=== PATIENT | female | born 1995 | race Caucasian/White ===

== ENCOUNTER 2024-04-17 11:36 | Emergency (ER) | payer BC, SELFPAY ==
[2024-04-17 11:45] VITALS: BP 130/79; PULSE 112; RESP 18; TEMP 36.9; O2SAT 97; BMI 52.7
[2024-04-17 12:36] LABS: Add Manual Diff / Slide Review NO; Basophils Absolute Auto 100 /uL (0-100); Basophils Percent Auto 0.3 % (0-2); Eosinophils Absolute Auto 200 /uL (0-450); Eosinophils Percent Auto 0.8 % (2-4); Hematocrit 43.9 % (36-46); Lymphocytes Absolute Auto 2200 /uL (1100-4500); Lymphocytes Percent Auto 8.3 % (25-40); Mean Corpuscular HGB Conc 34.2 % (30-36); Mean Corpuscular Hemoglobin 29.3 PG (26-34); Mean Corpuscular Volume 85.8 fL (80-100); Monocytes Absolute Auto 1400 /uL (0-900); Monocytes Percent Auto 5.4 % (3-14); Neutrophils Absolute Auto 22500 /uL (1500-7000); Neutrophils Percent Auto 85.2 % (50-75); Platelet Count 305 X10^3/uL (150-400); Red Blood Cell Count 5.12 X10^6/uL (4.0-5.2); Red Cell Distribution Width 13.1 % (11.6-14.8); White Blood Cell Count 26.4 X10^3/uL (4.5-11.0)
[2024-04-17] MEDS: SODIUM CHLORIDE 0.9% 1,000 ML 1000 ML IV (13:04)
[2024-04-17 13:05] LABS: Strep Grp A by PCR Rapid Positive (Negative)
[2024-04-17 13:20] LABS: Alanine Aminotransferase 21 IU/L (<35); Albumin 4.1 g/dL (3.5-5.0); Albumin Globulin Ratio 1.1 (1.0-2.8); Alkaline Phosphatase 94 U/L (38-126); Aspartate Aminotransferase 15 IU/L (14-36); Bilirubin Total 1.3 mg/dL (0.2-1.3); Blood Urea Nitrogen 7 mg/dL (7-17); Calcium 8.6 mg/dL (8.4-10.2); Carbon Dioxide 27 mmol/L (22-32); Chloride 102 mmol/L (98-107); Estimated Glomerular Filt Rate > 60 mL/min (>60); Globulin 3.7 g/dL (1.7-4.1); Glucose 281 mg/dL (70-100); HEMOLYSIS < 15 (0-50); Potassium 3.8 mmol/L (3.4-5.1); Sodium 135 mmol/L (137-145); Total Protein 7.8 g/dL (6.3-8.2)
--- NOTE | 2024-04-17 13:21 | ED_ITS ---
HPI - Weakness <Jack SimmonsJARAD truong - Last Filed: 04/17/24 15:29> General Chief complaint: Weakness Stated complaint: low blood pressure Source: patient Mode of arrival: Wheelchair History of Present Illness HPI Narrative: 28-year-old female, with history of type 2 diabetes, presents to emergency department with worsening sore throat and fatigue over last 2 days. Patient reports that she has been unable to eat or drink anything for the last couple of days due to the pain in her throat. Patient reports that she felt so poorly and lightheaded that she almost collapsed before her partner was able to help her to the ground and prevent her from hitting her head. Partner witnessed the entire episode and denies any head trauma or seizure activity. Patient was seen at the [facility] walk-in clinic last week and showed that she had a elevated blood sugar, and was given insulin at that time. Patient reports that the insulin only dropped her blood sugar 3 points. Patient is on metformin, but has not taken it in the last 4 months, because she has forgotten to take it. Patient does have a family doctor and has plenty of metformin at home. Related Data Previous Rx's Medication Instructions Recorded penicillin V potassium 500 mg 500 mg PO BID Strep pharyngitis 10 04/17/24 tablet days #20 tabs Allergies Allergy/AdvReac Type Severity Reaction Status Date / Time Sulfa (Sulfonamide Allergy Verified 04/17/24 11:45 Antibiotics) tramadol Allergy Verified 04/17/24 11:45 Review of Systems <Jack CasasJARAD rtuong - Last Filed: 04/17/24 15:29> Review of Systems Narrative: Narrative: See HPI. GENERAL: Denies chills, fever, sweats. Endorses fatigue. HEENT: Denies sinus pain, ear pain, , dizziness. Endorses sore throat and difficulty swallowing. RESPIRATORY: Denies dyspnea, cough, wheezing, sputum. CARDIOVASCULAR: Denies chest pain, palpitations, edema. GASTROINTESTINAL: Denies nausea, vomiting, abdominal pain, diarrhea, constipation. : Denies dysuria, frequency, incontinence, hematuria, urinary retention, flank pain. MSK: Denies weakness, joint pain, or bony pain. SKIN: Denies rash, skin lesions, or pruritis. NEUROLOGIC: Denies weakness, dizziness, headache, numbness, confusion. PSYCHIATRIC: No concerning psychosocial issues. Patient History <JARAD Cartagena - Last Filed: 04/17/24 15:29> Social History Smoking Status: Never smoker Smoking Status: Never smoker alcohol intake frequency: other Substance Use Type: marijuana Exam <JARAD Cartagena - Last Filed: 04/17/24 15:29> Narrative Exam Narrative: Exam Narrative: GENERAL: This is a well-nourished, well-developed patient, in no acute distress. HEAD: Atraumatic. Normocephalic. EYES: Pupils equal round and reactive. Extraocular motions intact. No scleral icterus, injection or drainage. ENT: Nose without bleeding, purulent drainage. Throat with erythema, tonsillar hypertrophy or exudate. Uvula swollen but midline. Airway patent. TMs and canals clear. No sinus tenderness. NECK: Trachea midline. No JVD. Tender right cervical lymph nodes. CARDIOVASCULAR: Regular rate and rhythm without murmurs, peripheral pulses intact, cap refill <2 sec. RESPIRATORY: Breath sounds equal and clear bilaterally. No wheezes, rales, or rhonchi. No cough. No increased respiratory effort. No accessory muscle use. GASTROINTESTINAL: Abdomen soft, non-tender, nondistended without guarding or rebound. No suprapubic pain. MSK: Moves all extremities. Normal range of motion, no clubbing or edema. Neurovascularly intact. NEURO: A&O x 3. SKIN: Warm, dry, no rashes or lesions noted. Initial Vital Signs Initial Vital Signs: Vital Signs Temperature 98.4 F 04/17/24 11:45 Pulse Rate 112 H 04/17/24 11:45 Respiratory Rate 18 04/17/24 11:45 Blood Pressure 130/79 04/17/24 11:45 Pulse Oximetry 97 04/17/24 11:45 Oxygen Delivery Method Room Air 04/17/24 11:45 Reviewed <Vamsi uQach MD - Last Filed: 04/18/24 18:45> Initial Vital Signs Initial Vital Signs: Vital Signs Temperature 98.4 F 04/17/24 11:45 Pulse Rate 112 H 04/17/24 11:45 Respiratory Rate 18 04/17/24 11:45 Blood Pressure 130/79 04/17/24 11:45 Pulse Oximetry 97 04/17/24 11:45 Oxygen Delivery Method Room Air 04/17/24 11:45 Course <JARAD Cartagena - Last Filed: 04/17/24 15:29> Orders Ordered: Discontinued Medications Sodium Chloride (Normal Saline 0.9%) 1,000 mls @ 1,000 mls/hr IV BOLUS PRN PRN Reason: Fluid replacement Last Infusion: 04/17/24 14:35 Dose: Infused Documented By: Admin: 04/17/24 13:04 Dose: 1,000 mls/hr Documented By: YANIRA Penicillin V Potassium (Penicillin Vk 250 Mg Tablet) 500 mg PO NOW ONE Stop: 04/17/24 13:22 Last Admin: 04/17/24 13:31 Dose: 500 mg Documented By: YANIRA Vital Signs Vital signs: Vital Signs - 8 hr 04/17/24 11:45 04/17/24 13:34 04/17/24 14:58 Temperature 98.4 F Pulse Rate 112 H 105 H 101 H Respiratory Rate 18 16 14 Blood Pressure 130/79 149/93 H 158/84 H Pulse Oximetry 97 98 98 Oxygen Delivery Method Room Air Room Air <Vamsi Quach MD - Last Filed: 04/18/24 18:45> Orders Ordered: Discontinued Medications Sodium Chloride (Normal Saline 0.9%) 1,000 mls @ 1,000 mls/hr IV BOLUS PRN PRN Reason: Fluid replacement Last Infusion: 04/17/24 14:35 Dose: Infused Documented By: Admin: 04/17/24 13:04 Dose: 1,000 mls/hr Documented By: YANIRA Penicillin V Potassium (Penicillin Vk 250 Mg Tablet) 500 mg PO NOW ONE Stop: 04/17/24 13:22 Last Admin: 04/17/24 13:31 Dose: 500 mg Documented By: YANIRA Vital Signs Vital signs: Vital Signs - 8 hr 04/17/24 11:45 04/17/24 13:34 04/17/24 14:58 Temperature 98.4 F Pulse Rate 112 H 105 H 101 H Respiratory Rate 18 16 14 Blood Pressure 130/79 149/93 H 158/84 H Pulse Oximetry 97 98 98 Oxygen Delivery Method Room Air Room Air MDM - Weakness <JARAD Cartagena - Last Filed: 04/17/24 15:29> Differential Diagnosis Differential diagnosis: Likely other (Strep pharyngitis, viral illness, hyperglycemia) Lab Data 04/17/24 12:27 04/17/24 12:58 Labs: Lab Results 04/17/24 04/17/24 04/17/24 Range/Units 11:55 12:27 12:58 WBC 26.4 H (4.5-11.0) X10^3/uL RBC 5.12 (4.0-5.2) X10^6/uL Hgb 15.0 (12.0-16.0) g/dL Hct 43.9 (36-46) % MCV 85.8 (80-100) fL MCH 29.3 (26-34) PG MCHC 34.2 (30-36) % RDW 13.1 (11.6-14.8) % Plt Count 305 (150-400) X10^3/uL Neut % (Auto) 85.2 H (50-75) % Lymph % (Auto) 8.3 L (25-40) % [place] % (Auto) 5.4 (3-14) % Eos % (Auto) 0.8 L (2-4) % Baso % (Auto) 0.3 (0-2) % Neut # (Auto) 98120 H (6773-3957) /uL Lymph # (Auto) 2200 (0469-2433) /uL [place] # (Auto) 1400 H (0-900) /uL Eos # (Auto) 200 (0-450) /uL Baso # (Auto) 100 (0-100) /uL Sodium 135 L (137-145) mmol/L Potassium 3.8 (3.4-5.1) mmol/L Chloride 102 (98-107) mmol/L Carbon Dioxide 27 (22-32) mmol/L BUN 7 (7-17) mg/dL Creatinine 0.50 L (0.52-1.04) mg/dL Estimated GFR > 60 (>60) mL/min BUN/Creatinine Ratio 14.0 (6-22) Glucose 281 H (70-100) mg/dL Calcium 8.6 (8.4-10.2) mg/dL Total Bilirubin 1.3 (0.2-1.3) mg/dL AST 15 (14-36) IU/L ALT 21 (<35) IU/L Alkaline Phosphatase 94 (38-126) U/L Total Protein 7.8 (6.3-8.2) g/dL Albumin 4.1 (3.5-5.0) g/dL Globulin 3.7 (1.7-4.1) g/dL Albumin/Globulin Ratio 1.1 (1.0-2.8) Group A Strep (PCR) Positive H (Negative) MDM Narrative Medical decision making narrative: 28-year-old female with sore throat and fatigue. Point of care rapid strep was positive. Labs revealed elevated WBC and glucose and decreased sodium. 1 L of NS infused and first dose of penicillin provided. Patient reports feeling significantly better and was able to fall asleep. Repeat testing of glucose was 219, down from 257 in triage. Patient and partner feel better and ready to go home. Patient instructed to begin penicillin immediately for her strep pharyngitis, along with supportive care measures for comfort. Patient also encouraged to reach out to her family doctor immediately to discuss her diabetes medications and to begin those ivon. Discussed plan of care and return precautions with patient and partner, who verbalized understanding and were agreeable course of action. <Vamsi Quach MD - Last Filed: 04/18/24 18:45> Lab Data Labs: Lab Results 04/17/24 04/17/24 04/17/24 Range/Units 11:55 12:27 12:58 WBC 26.4 H (4.5-11.0) X10^3/uL RBC 5.12 (4.0-5.2) X10^6/uL Hgb 15.0 (12.0-16.0) g/dL Hct 43.9 (36-46) % MCV 85.8 (80-100) fL MCH 29.3 (26-34) PG MCHC 34.2 (30-36) % RDW 13.1 (11.6-14.8) % Plt Count 305 (150-400) X10^3/uL Neut % (Auto) 85.2 H (50-75) % Lymph % (Auto) 8.3 L (25-40) % [place] % (Auto) 5.4 (3-14) % Eos % (Auto) 0.8 L (2-4) % Baso % (Auto) 0.3 (0-2) % Neut # (Auto) 48048 H (1163-5730) /uL Lymph # (Auto) 2200 (0998-2200) /uL [place] # (Auto) 1400 H (0-900) /uL Eos # (Auto) 200 (0-450) /uL Baso # (Auto) 100 (0-100) /uL Sodium 135 L (137-145) mmol/L Potassium 3.8 (3.4-5.1) mmol/L Chloride 102 (98-107) mmol/L Carbon Dioxide 27 (22-32) mmol/L BUN 7 (7-17) mg/dL Creatinine 0.50 L (0.52-1.04) mg/dL Estimated GFR > 60 (>60) mL/min BUN/Creatinine Ratio 14.0 (6-22) Glucose 281 H (70-100) mg/dL Calcium 8.6 (8.4-10.2) mg/dL Total Bilirubin 1.3 (0.2-1.3) mg/dL AST 15 (14-36) IU/L ALT 21 (<35) IU/L Alkaline Phosphatase 94 (38-126) U/L Total Protein 7.8 (6.3-8.2) g/dL Albumin 4.1 (3.5-5.0) g/dL Globulin 3.7 (1.7-4.1) g/dL Albumin/Globulin Ratio 1.1 (1.0-2.8) Group A Strep (PCR) Positive H (Negative) Discharge Plan Departure Patient Disposition: Home Clinical Impression: Acute streptococcal pharyngitis Instructions: DI for Strep Throat, DI for Hyperglycemia -- Adult Activity Restrictions/Additional Instructions: *You have been diagnosed with strep pharyngitis. Is a pleasure meeting you today and I am glad you are feeling better. We were able to get your blood sugar down to a more acceptable level after infusing IV fluids. Our rapid strep test was positive and you therefore have strep A. We will treat this with penicillin twice a day for 10 days. You are contagious until you have been on the antibiotics for 24 hours. Good supportive care includes rest, increased oral hydration, cool fluids and [id number] medications as needed for comfort. I strongly recommend you restart your diabetes medications, and should follow up with your family doctor immediately to ensure your dosing is correct. Please feel free to return to the emergency department if symptoms worsen. Otherwise, please follow-up with your family doctor. *What to do: *Please continue to take your regular medications as directed. [x ] New medication prescriptions sent to your pharmacy: [[facility]] [ ] New medication written as a paper prescription [ ] No new medications given *Please follow up with your primary care provider in 2-3 days, call for an appointment. Let them know you were seen in the Emergency Department and that we ask that you be seen in follow up. We will electronically transmit a record of today's note if your PCP is in our system *If you do not have a primary care provider please contact [facility] Resource line at [phone]. They will ask some questions about your medical history and help get you set up with a doctor in the community. ? Return to ER if you should have any new, worsening or concerning symptoms, such as worsening pain, severe headache, confusion, chest pain, difficulty breathing, fever greater than 101 F, shaking chills, persistent vomiting to the point that you cannot drink fluids, or other new or worsening symptoms. Prescriptions: New penicillin V potassium 500 mg tablet 500 mg PO BID 10 Days Qty: 20 0RF Referrals: Miscellaneous,[facility] [Primary Care Provider] - Stand Alone Forms: Patient Portal/API ED Sign-out <Vamsi Quach MD - Last Filed: 04/18/24 18:45> Cosign ED Attending Coselisabetature Attestation: I was immediately available in the department for consultation. I reviewed the documentation. Supervised by Vamsi Quach MD.
[2024-04-17] MEDS: PENICILLIN VK 250 MG TABLET 500 MG PO (13:31)
[2024-04-17 13:34] VITALS: BP 149/93; PULSE 105; RESP 16; O2SAT 98
[2024-04-17 14:58] VITALS: BP 158/84; PULSE 101; RESP 14; O2SAT 98
[2024-04-17 15:32] VITALS: BP 138/84; PULSE 112; RESP 14; O2SAT 99
== END 2024-04-17 15:33 | disposition home or self-care (01) ==
PROVIDERS: Emergency Medicine; Emergency Provider Registered Nurse
DX: J02.0 Streptococcal pharyngitis (principal)
CPT/HCPCS: 36415; 80053; 85025; 87651; 99283; 99284